=== PATIENT | female | born 1970 | race Caucasian/White ===

== ENCOUNTER 2017-01-03 06:19 | Emergency (ER) | payer MEDICARE ==
[~2017-01-03] VITALS: Ht 165.1 cm; Wt 102.8 kg
[~2017-01-03 06:19] MED LIST: ENDOCET 5-3251 EACH PO; Motrin PO; NATALCARE RX1 TABLE1 PO
[2017-01-03] MEDS ORDERED: VYVANSE40 MG PO (07:02)
[2017-01-03 07:37] LABS: EOSINOPHIL (%) 1.4 % (0-5); EOSINOPHIL COUNT 0.1 K/uL (0-0.3); HEMATOCRIT 34.8 % (36.0-46.0); IMMATURE GRANULOCYTE (%) 0.3 % (0.0-0.7); IMMATURE GRANULOCYTE COUNT 0.2 K/uL; LYMPHOCYTE COUNT 2.6 K/uL (1.0-2.8); MCH 27.6 PG (29.0-34.0); MCHC 33.3 G/DL (30.0-36.0); MCV 82.7 FL (83-99); MEAN PLAT.VOLUME 10.3 uM^3 (9.5-12.4); MONOCYTE (%) 7.9 % (3-12); MONOCYTE COUNT 0.5 K/uL (0-0.8); NEUTROPHIL (%) 49.9 % (45-76); NEUTROPHIL COUNT 3.2 K/uL (1.8-6.4); PLATELET COUNT 255 K/uL (156-360); RBC DIS.WIDTH-CV 13.5 % (11.8-14.6); RBC DIS.WIDTH-SD 39.3 % (39-53); RED BLOOD COUNT 4.21 M/uL (3.80-5.20); WHITE BLOOD COUNT 6.3 K/uL (4.1-10.2)
[2017-01-03 07:46] LABS: CHLORIDE 108 mEq/L (99-109); POTASSIUM 3.9 mEq/L (3.7-5.4); SODIUM 138 mEq/L (136-147)
[2017-01-03 07:47] LABS: PROTHROMBIN TIME 10.2 (9.2-11.2); PTT 24.6 (25-32)
[2017-01-03 07:48] LABS: GLUCOSE 86 mg/dL (70-99)
[2017-01-03 07:49] LABS: ANION GAP 9 MEQ/L (2-14)
[2017-01-03 07:52] LABS: GFR ESTIMATE (CALCULATED) > 59 mL/min/
[2017-01-03 07:53] LABS: UREA NITROGEN (BUN) 12 mg/dL (9-23)
[2017-01-03 07:58] LABS: TROP-I INTERPRETATION NEGATIVE; TROPONIN-I < 0.01 ng/mL (0.0-0.30)
[2017-01-03 08:00] LABS: QUANTITATIVE HCG < 4.0 MIU/ML
[2017-01-03 10:22] LABS: TROP-I INTERPRETATION NEGATIVE; TROPONIN-I 0.01 ng/mL (0.0-0.30)
[2017-01-03 11:10] VITALS: BP 124/92
== END 2017-01-03 11:10 | disposition home or self-care (01) ==
LOC: EME 06:19
PROVIDERS: Emergency Medicine
DX: R07.89 Other chest pain (principal); R41.9 Unspecified symptoms and signs involving cognitive functions and awareness
CPT/HCPCS: 71010; 80048; 84484; 84702; 85025; 85610; 85730; 93005; 99281; 99285